=== PATIENT | male | born 1985 | race Caucasian/White ===

== ENCOUNTER 2017-12-04 08:32 | Emergency (ER) | payer MEDICAID ==
[~2017-12-04] VITALS: Ht 182.9 cm; Wt 82.0 kg
[2017-12-04 08:46] VITALS: BP 142/86
[2017-12-04] MEDS ORDERED: IBUPROFEN 200 MG TABLET PO ONE (10:00)
== END 2017-12-04 10:24 | disposition home or self-care (01) ==
LOC: ED 10:18
DX: S63.502A Unspecified sprain of left wrist, initial encounter (principal); X58.XXXA Exposure to other specified factors, initial encounter; Y93.89 Activity, other specified; Y92.89 Other specified places as the place of occurrence of the external cause; Y99.8 Other external cause status
CPT/HCPCS: 99284